=== PATIENT | female | born 1970 | race Caucasian/White ===

== ENCOUNTER 2016-11-13 03:55 | Observation (INO) | payer MEDICAID, OTHER ==
[2016-11-13] MEDS ORDERED: Sodium Chloride 0.9% 1000 ML 1,000 ML IV STA (03:58)
[2016-11-13] MEDS ORDERED: Phenergan 25 MG INJ IV ONE (03:58)
[2016-11-13] MEDS ORDERED: Hydromorphone 1 mg/ml Ampule IV ONE ×2 (03:58→06:21)
--- NOTE | 2016-11-13 04:00 | ERPHSYRPT ---
- History of Present Illness Time Seen by Provider: 11/13/16 03:55 Historian: patient, family () Exam Limitations: no limitations Physician History: FOR THE PAST 4 HOURS PT HAS HAD INTERMITTENT EPIGASTRIC PAIN WITH NAUSEA. YESTERDAY SHE STARTED WITH RIGHT LOWER BACK PAIN. PT HAS BEEN DIAGNOSED WITH RIGHT BREAST CANCER IN JANUARY 2016 AND HAS BEEN RECEIVING CHEMOTHERAPY. PT DENIES CHEST PAIN, SHORTNESS OF AIR, SWELLING. Allergies/Adverse Reactions: codeine Allergy (Verified 11/13/16 04:18) Home Medications: Unobtainable [Unobtainable] 11/13/16 [History] Hx Tetanus, Diphtheria Vaccination/Date Given: Yes Hx Influenza Vaccination/Date Given: No Hx Pneumococcal Vaccination/Date Given: No - Review of Systems Abdominal/Gastrointestinal: Abdominal Pain, Nausea Musculoskeletal: Back Pain All Other Systems: Reviewed and Negative - Past Medical History Pertinent Past Medical History: Yes Psycho-Social History: Anxiety, Depression - Past Surgical History Past Surgical History: Yes Musculoskeletal: Other Female Surgical History: Tubal Ligation - Social History Smoking Status: Current every day smoker How long have you smoked: 35 Exposure to second hand smoke: Yes Drug Use: none Patient Lives Alone: No - Nursing Vital Signs Nursing Vital Signs: Initial Vital Signs Temperature 98.1 F Temperature Source Oral Pulse Rate 67 Respiratory Rate 16 Blood Pressure [Left Arm] 122/78 Pain Intensity 9 - Physical Exam General Appearance: alert Eye Exam: PERRL/EOMI Ears, Nose, Throat Exam: TMs normal, pharynx normal, moist mucous membranes Neck Exam: normal inspection Respiratory Exam: lungs clear Cardiovascular Exam: normal heart sounds Gastrointestinal/Abdomen Exam: soft, normal bowel sounds, tenderness (MILD EPIGASTRIC TENDERNESS) Back Exam: normal range of motion Extremity Exam: normal inspection, No pedal edema Neurologic Exam: alert, cooperative Skin Exam: warm, dry - Course Nursing assessment & vital signs reviewed: Yes - CT Exams Abdomen/Pelvis CT Interpretation: Tele-radiologist Report (THE APPENDIX IS THICKENED MEASURING JUST OVER 10MM. IT'S MARGIN IS INDISTINCT AND THERE IS A SMALL AMOUNT OF ADJACENT INFLAMMATORY CHANGE COMPATIBLE WITH ACUTE APPENDICITIS.) Ordered Tests: Active Orders 24 hr Category Date Time Status Clean Catch Urine Specimen STAT Care 11/13/16 03:58 Active IV Insertion STAT Care 11/13/16 03:58 Active ABDOMEN AND PELVIS W/0 CONTRAS [CT] Stat Exams 11/13/16 03:58 Taken AMYLASE Stat Lab 03/16/17 04:28 Completed BLOOD CULTURE Stat Lab 11/13/16 06:53 Ordered CBC W DIFF Stat Lab 11/13/16 04:28 Completed CMP Stat Lab 11/13/16 04:28 Completed CULTURE,URINE Stat Lab 11/13/16 06:53 Ordered HCG QUALITATIVE,SERUM Stat Lab 11/13/16 04:28 Completed LIPASE Stat Lab 11/13/16 04:28 Completed MAGNESIUM Stat Lab 11/13/16 04:28 Completed UA W/ MICROSCOPIC Stat Lab 11/13/16 06:00 Completed Medication Summary Generic Name Dose Route Start Last Admin Trade Name Freq PRN Reason Stop Dose Admin Ceftriaxone Sodium/Dextrose 50 mls @ 100 mls/hr 11/13/16 06:54 Rocephin 1 Gm-D5w 50 Ml Bag IV 11/13/16 07:23 STAT ONE Potassium Chloride 100 mls @ 50 mls/hr 11/13/16 06:54 Potassium Chloride 20 Meq In Water 100ml IV 11/13/16 08:53 STAT ONE Discontinued Medications Generic Name Dose Route Start Last Admin Trade Name Freq PRN Reason Stop Dose Admin Hydromorphone HCl 1 mg 11/13/16 03:58 11/13/16 04:23 Hydromorphone 1 Mg/Ml Ampule IV 11/13/16 03:59 1 mg STAT ONE Administration Hydromorphone HCl Confirm 11/13/16 04:21 Hydromorphone 1 Mg/Ml Ampule Administered 11/13/16 04:22 Dose 1 mg .ROUTE .STK-MED ONE Hydromorphone HCl 1 mg 11/13/16 06:21 11/13/16 06:25 Hydromorphone 1 Mg/Ml Ampule IV 11/13/16 06:22 1 mg STAT ONE Administration Hydromorphone HCl Confirm 11/13/16 06:23 Hydromorphone 1 Mg/Ml Ampule Administered 11/13/16 06:24 Dose 1 mg .ROUTE .STK-MED ONE Sodium Chloride 1,000 mls @ 999 mls/hr 11/13/16 03:58 11/13/16 04:23 Sodium Chloride 0.9% 1000 Ml IV 11/13/16 04:58 999 mls/hr .Q1H1M STA Administration Sodium Chloride Confirm 11/13/16 04:22 Sodium Chloride 0.9% 1000 Ml Administered 11/13/16 04:23 Dose 1,000 mls @ ud .ROUTE .STK-MED ONE Promethazine HCl 12.5 mg 11/13/16 03:58 11/13/16 04:23 Phenergan 25 Mg Inj IV 11/13/16 03:59 12.5 mg STAT ONE Administration Promethazine HCl Confirm 11/13/16 04:21 Phenergan 25 Mg Inj Administered 11/13/16 04:22 Dose 25 mg .ROUTE .STK-MED ONE Lab/Rad Data: Laboratory Result Diagrams 11/13/16 04:28 11/13/16 04:28 Laboratory Results 11/13/16 11/13/16 11/13/16 Range/Units 06:00 04:28 04:28 WBC (4.0-10.5) K/mm3 RBC (4.1-5.4) M/mm3 Hgb (12.0-16.0) gm/dl Hct (35-47) % MCV (78-100) fl MCH (26-32) pg MCHC (32-36) g/dl RDW (11.5-14.0) % Plt Count (150-450) K/mm3 MPV (6-9.5) fl Gran % (36.0-66.0) % Lymphocytes % (24.0-44.0) % Monocytes % (0.0-12.0) % Eosinophils % (0.00-5.0) % Basophils % (0.0-0.4) % Basophils # (0-0.4) Sodium 140 (136-145) mEq/L Potassium 3.4 L (3.5-5.1) mEq/L Chloride 104 (98-107) mEq/L Carbon Dioxide 23.9 (21-32) mEq/L Anion Gap 15.3 H (5-15) MEQ/L BUN 16 (9-20) mg/dL Creatinine 0.74 (0.55-1.30) mg/dl Estimated GFR > 60 ML/MIN Glucose 109 (70-110) MG/DL Calcium 8.7 (8.5-10.1) mg/dL Magnesium 1.8 (1.8-2.4) mg/dL Total Bilirubin 0.3 (0.2-1.0) mg/dL AST 29 (15-37) U/L ALT 36 (12-78) U/L Alkaline Phosphatase 47 (46-116) U/L Serum Total Protein 6.3 L (6.4-8.2) gm/dL Albumin 3.8 (3.4-5.0) g/dL Amylase 63 (25-115) U/L Lipase 346 (73-393) U/L Serum , Qual NEGATIVE (Negative) Ur Collection Type CLEAN CATCH Urine Color YELLOW (YELLOW) Urine Appearance CLEAR (CLEAR) Urine pH 6.0 (5-6) Ur Specific Lockhart 1.020 (1.005-1.025) Urine Protein NEGATIVE (Negative) Urine Glucose (UA) NEGATIVE (NEGATIVE) mg/dL Urine Ketones NEGATIVE (NEGATIVE) Urine Nitrite POSITIVE (NEGATIVE) Urine Bilirubin NEGATIVE (NEGATIVE) Urine Urobilinogen 0.2 (0-1) mg/dL Urine WBC (Auto) NEGATIVE (NEGATIVE) Urine RBC (Auto) NEGATIVE (0-5) Jeffrey/ul Urine Microscopic WBC 2-5 (0-5) /HPF Ur Epithelial Cells FEW (FEW) /HPF Urine Bacteria PACKED (NEGATIVE) /HPF Urine Mucus MODERATE (NEGATIVE) /HPF Specimen Received 0316 0600 11/13/16 Range/Units 04:28 WBC 5.9 (4.0-10.5) K/mm3 RBC 2.87 L (4.1-5.4) M/mm3 Hgb 10.0 L (12.0-16.0) gm/dl Hct 29.8 L (35-47) % MCV 103.8 H (78-100) fl MCH 34.8 H (26-32) pg MCHC 33.6 (32-36) g/dl RDW 15.1 H (11.5-14.0) % Plt Count 146 L (150-450) K/mm3 MPV 10.2 H (6-9.5) fl Gran % 79.0 H (36.0-66.0) % Lymphocytes % 17.1 L (24.0-44.0) % Monocytes % 3.9 (0.0-12.0) % Eosinophils % 0.0 (0.00-5.0) % Basophils % 0.0 (0.0-0.4) % Basophils # 0 (0-0.4) Sodium (136-145) mEq/L Potassium (3.5-5.1) mEq/L Chloride (98-107) mEq/L Carbon Dioxide (21-32) mEq/L Anion Gap (5-15) MEQ/L BUN (9-20) mg/dL Creatinine (0.55-1.30) mg/dl Estimated GFR ML/MIN Glucose (70-110) MG/DL Calcium (8.5-10.1) mg/dL Magnesium (1.8-2.4) mg/dL Total Bilirubin (0.2-1.0) mg/dL AST (15-37) U/L ALT (12-78) U/L Alkaline Phosphatase (46-116) U/L Serum Total Protein (6.4-8.2) gm/dL Albumin (3.4-5.0) g/dL Amylase (25-115) U/L Lipase (73-393) U/L Serum , Qual (Negative) Ur Collection Type Urine Color (YELLOW) Urine Appearance (CLEAR) Urine pH (5-6) Ur Specific Lockhart (1.005-1.025) Urine Protein (Negative) Urine Glucose (UA) (NEGATIVE) mg/dL Urine Ketones (NEGATIVE) Urine Nitrite (NEGATIVE) Urine Bilirubin (NEGATIVE) Urine Urobilinogen (0-1) mg/dL Urine WBC (Auto) (NEGATIVE) Urine RBC (Auto) (0-5) Jeffrey/ul Urine Microscopic WBC (0-5) /HPF Ur Epithelial Cells (FEW) /HPF Urine Bacteria (NEGATIVE) /HPF Urine Mucus (NEGATIVE) /HPF Specimen Received - Progress Discussed with : Selma (OBS - [id number]) - Departure Time of Disposition: 07:05 Departure Disposition: Observation Clinical Impression: ACUTE APPENDICITIS, HX RIGHT BREAST CANCER, ANXIETY, DEPRESSION Condition: Fair Critical Care Time: No
[2016-11-13] MEDS ORDERED: Phenergan 25 MG INJ ONE (04:21)
[2016-11-13] MEDS ORDERED: Hydromorphone 1 mg/ml Ampule ONE ×2 (04:21→06:23)
[2016-11-13] MEDS ORDERED: Sodium Chloride 0.9% 1000 ML 1,000 ML ONE (04:22)
[2016-11-13 04:32] LABS: Lymphocytes % 17.1 % (24.0-44.0); Mean Cell Volume 103.8 fl (78-100); Mean Corpuscular Hemoglobin 34.8 pg (26-32); Mean Platelet Volume 10.2 fl (6-9.5); Monocytes % 3.9 % (0.0-12.0); Platelet Count 146 K/mm3 (150-450); Red Blood Count 2.87 M/mm3 (4.1-5.4); Red Cell Distribution Width 15.1 % (11.5-14.0); White Blood Count 5.9 K/mm3 (4.0-10.5)
[2016-11-13 05:00] LABS: ALBUMIN 3.8 g/dL (3.4-5.0); ALKALINE PHOSPHATASE 47 U/L (46-116); ANION GAP 15.3 MEQ/L (5-15); BILIRUBIN,TOTAL 0.3 mg/dL (0.2-1.0); BLOOD UREA NITROGEN 16 mg/dL (9-20); CHLORIDE 104 mEq/L (98-107); Carbon Dioxide 23.9 mEq/L (21-32); Glucose 109 MG/DL (70-110); LIPASE 346 U/L (73-393); MAGNESIUM 1.8 mg/dL (1.8-2.4); Potassium 3.4 mEq/L (3.5-5.1); SGOT/AST 29 U/L (15-37); SGPT/ALT 36 U/L (12-78); SODIUM 140 mEq/L (136-145); Total Protein 6.3 gm/dL (6.4-8.2)
[2016-11-13 06:03] LABS: Collection Type CLEAN CATCH
[2016-11-13 06:04] LABS: COMPLETE URINE MICROSCOPIC? YES
[2016-11-13 06:21] LABS: Bacteria PACKED /HPF (NEGATIVE); Epithelial Cells FEW /HPF (FEW); Mucus MODERATE /HPF (NEGATIVE)
[2016-11-13] MEDS ORDERED: ROCEPHIN 1 Gm-D5w 50 ml Bag** 50 ML IV ONE ×2 (06:54→07:05)
[2016-11-13] MEDS ORDERED: POTASSIUM CHLORIDE 20 mEq IN WATER 100ML 100 ML IV ONE (06:54)
[2016-11-13] MEDS ORDERED: DILAUDID 2 MG INJECTION IV PRN (07:45)
[2016-11-13] MEDS ORDERED: Sodium Chloride 0.9% W/ 20 mEq KCl/LITER 1,000 ML IV SCH (07:45)
[2016-11-13] MEDS ORDERED: Phenergan 25 MG INJ IV PRN (07:45)
[2016-11-13] MEDS ORDERED: TORAdol 30 mg Injection IJ ONE (08:00)
[2016-11-13] MEDS ORDERED: Decadron 4 MG INJ IV ONE (08:00)
[2016-11-13] MEDS ORDERED: Quelicin Fliptop 200 MG/10 ML IJ ONE (08:00)
[2016-11-13] MEDS ORDERED: DIPRIVAN 200 MG/20 ML IV ONE (08:00)
[2016-11-13] MEDS ORDERED: Zofran 4 MG/2 ML VIAL IV ONE (08:00)
[2016-11-13] MEDS ORDERED: BRIDION 200MG/2ML IV ONE (08:00)
[2016-11-13] MEDS ORDERED: Zemuron 100 MG/10 ML IJ ONE (08:00)
[2016-11-13 09:00] VITALS: BP 122/69
[2016-11-13] MEDS ORDERED: Pepcid 20 MG VIAL IV SCH (09:00)
[2016-11-13] MEDS ORDERED: Lactated Ringers 1,000 ML IV SCH (09:00)
--- NOTE | 2016-11-13 09:37 | XRAY ---
Indication: Upper abdominal pain, nausea, and vomiting. Multiple contiguous axial images obtained through the abdomen and pelvis without contrast as ordered. Comparison: None Lung bases stems is minimal bibasilar dependent atelectasis. Heart is not enlarged. Small hiatal hernia. Partially visualized right breast implant. Noncontrasted stomach and bowel loops appear nonobstructed. There is moderate diffuse scattered colonic fecal debris throughout. Minimal left hemicolon and sigmoid diverticulosis without diverticulitis. Appendix emanates posterior medially from the cecum and appears prominent up to 10 mm in diameter with minimal wall thickening and minimal stranding concerning for appendicitis. Small curvilinear appendicolith at its base. No free fluid/air. There has been previous hysterectomy. Nonobstructing left renal micro-calculus. Remaining liver, gallbladder, pancreas, spleen, adrenal glands, kidneys, ureters, bladder, uterus, and aorta appear unremarkable for noncontrast exam. Osseous structures intact with minimal degenerative changes throughout the spine. Impression: 1. Prominent appendix with wall thickening, minimal stranding, and appendicolith. Rule out acute appendicitis. 2. Incidental fecal stasis without obstruction, colonic diverticulosis, and small hiatal hernia. Comment: Preliminary interpretation was made by [facility]. No discrepancy. CTDI 18.62
[2016-11-13] MEDS ORDERED: PROTONIX 40 MG IV IV SCH (10:00)
[2016-11-13] MEDS ORDERED: Sensorcaine 0.25% 10 ML ONE (10:04)
[2016-11-13] MEDS ORDERED: D5W/0.45NS W/ 20mEq KCl 1000 ML 1,000 ML IV SCH (12:30)
[2016-11-13] MEDS ORDERED: MORPHINE SULFATE 2 MG INJ IV PRN (12:36)
[2016-11-13] MEDS ORDERED: TYLENOL 325 MG PO PRN (12:43)
[2016-11-13] MEDS ORDERED: NORCO 5/325 MG PO PRN (12:43)
[2016-11-13] MEDS ORDERED: FEVERALL 650 MG RC PRN (12:44)
[2016-11-13] MEDS ORDERED: Zofran 4 MG/2 ML VIAL IVIM PRN (12:44)
[2016-11-13 14:38] VITALS: PULSE 87; O2SAT 95
[2016-11-13] MEDS ORDERED: MEFOXIN 1 Gm/ D5W 50 Ml** 50 ML IV SCH (18:00)
[2016-11-14] MEDS ORDERED: ROCEPHIN 1 Gm-D5w 50 ml Bag** 50 ML IV SCH (10:00)
[2016-11-14] MEDS ORDERED: ENOXAPARIN SODIUM SQ SCH (10:00)
--- NOTE | 2016-11-15 14:25 | OP ---
SURGERY DATE/TIME: 11/13/2016 1015 PREOPERATIVE DIAGNOSIS: Acute appendicitis. POSTOPERATIVE DIAGNOSIS: Acute appendicitis. PROCEDURE: Laparoscopic appendectomy. SURGEON: Esteban Leija M.D. ANESTHESIA: General endotracheal tube. COMPLICATIONS: None. CONDITION: Stable. INDICATION: A patient with findings and symptoms compatible with appendicitis although a lot of her pain was actually epigastric. DESCRIPTION OF PROCEDURE: Taken to surgery. General anesthetic. Routine prep and drape. Veress needle inserted. Opening pressure of 1 and insufflating pressure 14. A 12 trocar introduced. No blood on the trocar introduction site. Two - 5's laterally, good visualization. The appendix was acutely inflamed, fairly short 3 inches. Mesoappendix taken with 2.5 vascular cartridge. Base taken with 2.5 vascular cartridge. Appendix placed in a condom bag and removed. The field was dry and clean. CO2 was exsufflated. Port sites closed deliberately with hole closure device at the 12 port. Skin closed with 4-0 Vicryl, Steri-Strips. The patient tolerated the procedure satisfactorily.
== END 2016-11-13 16:15 | disposition home or self-care (01) ==
LOC: ED 03:55 → MED SURG 07:15
PROVIDERS: ADMIT Surgery; ATTEND Surgery
PROC: 0DTJ4ZZ Resection of Appendix, Percutaneous Endoscopic Approach (ICD-10-PCS; principal; 2016-11-13)
DX: K35.80 Unspecified acute appendicitis (principal); R10.9 Unspecified abdominal pain; Z79.899 Other long term (current) drug therapy
CPT/HCPCS: 36000; 36415; 74176; 80053; 81000; 82150; 83690; 83735; 84703; 85025; 87040; 87077; 87086; 87186; 88304; 94760; 96360; 96374; 96375; 96376; 99285; G0378; J0330; J0696; J1100; J1170; J1642; J1885; J2405; J2550; J2704

== ENCOUNTER 2019-01-23 23:08 | Emergency (ER) | payer MEDICAID ==
[2019-01-23 23:23] VITALS: BP 136/82; PULSE 81; O2SAT 99
--- NOTE | 2019-01-23 23:59 | ERPHSYRPT ---
- History of Present Illness Time Seen by Provider: 01/23/19 23:55 Source: patient, family Exam Limitations: no limitations Patient Subjective Stated Complaint: Head injury Triage Nursing Assessment: Patient ambulated back to ED and transferred self to bed. Patient A+O X 3. Patient's skin pink, warm and dry. Patient states she had been drinkin alcohol (around 10 beers and 2 shots of liquor) and fell foward hitting the left side of forehead around 2225. Patient denies losing consciousness. Patient reports headache 06/09. Pupils PERRl. Brusing and a large knot noted above left eyebrow. Physician History: the pt fell and hit her head twice on the concrete frontal and left lateral temporal hematomas and tenderness - no blood thinners , no LOC but had some blurred vision initially - retina looks OK on opth exam full EOM and can read at distance no other complaint of injury. Occurred: this evening Severity: moderate Head Injury Location: frontal, temporal Method of Injury: fell Loss of Consciousness: no loss of consciousness, dazed Allergies/Adverse Reactions: codeine Adverse Reaction (Verified 01/23/19 23:10) Vomiting Home Medications: B12/Levomefolate Calcium/B-6 [Foltx Tablet] 1 each PO DAILY 01/23/19 [History] Levothyroxine Sodium 1 tab PO DAILY 01/23/19 [History] Tamoxifen Citrate 20 mg PO DAILY 01/23/19 [History] Hx Tetanus, Diphtheria Vaccination/Date Given: Yes Hx Influenza Vaccination/Date Given: No Hx Pneumococcal Vaccination/Date Given: No Immunizations Up to Date: Yes - Review of Systems Constitutional: No Fever, No Chills Eyes: No Symptoms Ears, Nose, & Throat: No Symptoms Respiratory: No Cough, No Dyspnea Cardiac: No Chest Pain, No Edema, No Syncope Abdominal/Gastrointestinal: No Abdominal Pain, No Nausea, No Vomiting, No Diarrhea Genitourinary Symptoms: No Dysuria Musculoskeletal: No Back Pain, No Neck Pain Skin: No Rash Neurological: No Dizziness, No Focal Weakness, No Sensory Changes Psychological: No Symptoms Endocrine: No Symptoms Hematologic/Lymphatic: No Symptoms Immunological/Allergic: No Symptoms All Other Systems: Reviewed and Negative - Past Medical History Pertinent Past Medical History: Yes Neurological History: No Pertinent History ENT History: No Pertinent History Cardiac History: No Pertinent History Respiratory History: No Pertinent History Endocrine Medical History: Hypothyroidism Musculoskeletal History: No Pertinent History GI Medical History: No Pertinent History History: No Pertinent History Psycho-Social History: Anxiety, Depression Female Reproductive Disorders: Breast Cancer Other Medical History: BREAST CA - Past Surgical History Past Surgical History: Yes Neuro Surgical History: No Pertinent History Cardiac: No Pertinent History Respiratory: No Pertinent History Gastrointestinal: Appendectomy Musculoskeletal: No Pertinent History, Other Female Surgical History: No Pertinent History, Tubal Ligation Other Surgical History: R BREAST REMOVED - Social History Smoking Status: Current every day smoker How long have you smoked: years Exposure to second hand smoke: Yes Drug Use: none Patient Lives Alone: No - Female History Hx Last Menstrual Period: menopausal Hx Now: No - Nursing Vital Signs Nursing Vital Signs: Initial Vital Signs Temperature 98.0 F 01/23/19 23:14 Pulse Rate 81 01/23/19 23:14 Respiratory Rate 18 01/23/19 23:14 Blood Pressure 136/82 01/23/19 23:14 O2 Sat by Pulse Oximetry 99 01/23/19 23:14 Pain Scale Pain Intensity 10 - Eudora Coma Score Best Eye Response (Zenon): (4) open spontaneously Best Verbal Response (Zenon): (5) oriented Best Motor Response (Eudora): (6) obeys commands Eudora Total: 15 - Physical Exam General Appearance: no apparent distress, alert Head Injury: contusions, swelling Eye Exam: bilateral eye: PERRL, EOMI ENT Exam: airway nml, No dental injury Neck Exam: supple, trachea midline, full range of motion, normal alignment, normal inspection Cardiovascular/Respiratory Exam: chest non-tender, normal breath sounds, regular rate/rhythm Gastrointestinal/Abdominal Exam: soft, non tender, no distention Back Exam: normal inspection, No vertebral tenderness Extremity Exam: non-tender, normal range of motion, normal inspection Mental Status Exam: alert, oriented x 3, cooperative Motor/Sensory Exam: no motor deficit, no sensory deficit, CN II-XII intact Skin Exam: normal color, warm, dry, No rash SpO2: 99 - Course Nursing assessment & vital signs reviewed: Yes - CT Exams Head CT Interpretation: No/Intracranial Hemorrhag Ordered Tests: Active Orders 24 hr Category Date Time Status HEAD WITHOUT CONTRAST [CT] Stat Exams 01/23/19 23:59 Taken - Progress Progress: unchanged, re-examined Progress Note: 01/24/19 01:58 symptoms resolved in ER. Counseled pt/family regarding: diagnosis, need for follow-up, rad results - Departure Departure Disposition: Home Clinical Impression: Concussion, Traumatic hematoma of forehead Condition: Good Critical Care Time: No Instructions: Concussion, Adult (DC), Closed Head Injury (DC) Additional Instructions: Although the Cat scan does not show any brain injury, there can be some delayed swelling from the concussion in the first 24 hours , so follow the head injury precautions and return if any further symptoms of concern.
--- NOTE | 2019-01-24 08:15 | XRAY ---
Indication: Left forehead contusion/abrasion following fall. Multiple contiguous axial images obtained through the head without contrast. Comparison: None Normal appearing brain parenchyma, ventricles, and bony calvarium. Tiny left forehead soft tissue swelling. Mild right sphenoid sinus and lesser degree left frontal sinus mucosal thickening. Remaining visualized paranasal sinuses and mastoid air cells are clear. Impression: Paranasal sinus disease. Remaining CT head without contrast exam is negative. Comment: Preliminary interpretation was made by [facility]. No discrepancy. CTDI 51.07
== END 2019-01-24 02:18 | disposition home or self-care (01) ==
LOC: ED 23:08
DX: S06.0X0A Concussion without loss of consciousness, initial encounter (principal); W01.198A Fall on same level from slipping, tripping and stumbling with subsequent striking against other object, initial encounter; Y93.89 Activity, other specified; F10.10 Alcohol abuse, uncomplicated
CPT/HCPCS: 70450; 99283